=== PATIENT | male | born 1975 | race Caucasian/White ===

== ENCOUNTER 2017-03-16 15:14 | Outpatient (CLI) | payer OTHER ==
[2017-03-16 16:28] LABS: Anion Gap 14 mmol/L (10-20); BUN (Urea Nitrogen) 13 mg/dL (8.9-20.6); Calc. Creatinine Clearance 0 mL/min (70-130); Calcium 9.7 mg/dL (7.8-10.44); Carbon Dioxide 30 mmol/L (22-29); Chloride 103 mmol/L (98-107); Estimated GFR-MDRD Greater than 90; Glucose 104 mg/dL (70-105); Potassium 4.6 mmol/L (3.5-5.1); Sodium 142 mmol/L (136-145)
== END 2017-03-16 15:15 | disposition home or self-care (01) ==
LOC: NAVSJIPCSP 15:14
DX: R19.7 Diarrhea, unspecified (principal)
CPT/HCPCS: 80048; 83630; 87015; 87045; 87046; 87081; 87177; 87324; 87449; 87899

== ENCOUNTER 2019-05-25 13:24 | Emergency (ER) | payer OTHER ==
[2019-05-25] MEDS ORDERED: Ibuprofen 800 MG TAB ONE (13:58)
--- NOTE | 2019-05-25 14:12 | RAD ---
Exam: Right hand 3 views: HISTORY: Swelling Prominent dorsal soft tissue swelling noted over the region of the metacarpals. No evidence for acute fracture, dislocation, or other significant osseous process. IMPRESSION: Prominent dorsal soft tissue swelling over the metacarpal region without acute fracture or dislocatio n.
== END 2019-05-25 14:24 | disposition home or self-care (01) ==
LOC: NAV ERS 13:24
DX: S60.221A Contusion of right hand, initial encounter (principal); W31.2XXA Contact with powered woodworking and forming machines, initial encounter

== ENCOUNTER 2021-05-15 11:08 | Outpatient (CLI) | payer OTHER | END 2021-05-15 11:09 | disposition home or self-care (01) | LOC: NAV RAD 11:08 | PROVIDERS: ATTEND Family Medicine | DX: R07.89 Other chest pain (principal); R05.3 Chronic cough; U09.9 Post COVID-19 condition, unspecified | CPT/HCPCS: 71046 ==

== ENCOUNTER 2021-06-14 14:47 | Outpatient (CLI) | payer OTHER | END 2021-06-14 14:48 | disposition home or self-care (01) | LOC: NAV RAD 14:47 | PROVIDERS: ATTEND Family Medicine | DX: U09.9 Post COVID-19 condition, unspecified (principal); R91.8 Other nonspecific abnormal finding of lung field | CPT/HCPCS: 71046 ==